=== PATIENT | female | born 1965 | race Two or more races ===

== ENCOUNTER 2025-05-08 12:14 | Inpatient (IN) | payer OTHER ==
[~2025-05-08] VITALS: Wt 74.8 kg
[2025-05-08] MEDS ORDERED: ZETIA10 MG (13:19)
[2025-05-15] MEDS ORDERED: CEFTRIAXONE SODIUM 2,000 MG VIAL ONE (09:23)
[2025-05-15] MEDS ORDERED: METRONIDAZOLE/SODIUM CHLORIDE 500 MG/100 ML PIGGYBACK IV ONE ×2 (09:23→15:47)
[2025-05-15] MEDS ORDERED: BUPIVACAINE HCL/Mpf 0.5% 10ML VIAL ONE (10:01)
[2025-05-15] MEDS ORDERED: SUGAMMADEX SODIUM 200 MG/2 ML VIAL IV ONE (11:57)
[2025-05-15] MEDS ORDERED: 0.9 % SODIUM CHLORIDE 1,000 ML IV SCH (12:30)
[2025-05-15] MEDS ORDERED: ONDANSETRON HCL 2 MG/ML VIAL IV PRN (12:30)
[2025-05-15] MEDS ORDERED: DEXTROSE 50 % IN WATER 0.5 G/ML VIAL IV PRN (12:30)
[2025-05-15] MEDS ORDERED: MORPHINE SULFATE 4 MG/ML CARTRIDGE IV PRN (12:30)
[2025-05-15] MEDS ORDERED: OxyCODONE HCL 5 MG TABLET (ROXICODONE) PO PRN (12:30)
[2025-05-15] MEDS ORDERED: HYOSCYAMINE SULFATE 0.125 MG TAB.SUBL SL SCH (13:00)
[2025-05-15] MEDS ORDERED: ONDANSETRON HCL 2 MG/ML VIAL ONE (13:40)
[2025-05-15] MEDS ORDERED: ENALAPRILAT DIHYDRATE 1.25 MG/ML VIAL IV PRN (13:45)
[2025-05-15] MEDS ORDERED: ONDANSETRON HCL 2 MG/ML VIAL IV ONE (13:50)
[2025-05-15] MEDS ORDERED: ACETAMINOPHEN 500 MG GEL..CAP PO SCH (14:00)
[2025-05-15 15:44] LABS: BASO % 0.3 % (0.1-1.2); EOS # 0.02 (0.04-0.54); EOS % 0.2 % (0.7-7.0); LYMPH # 1.46 (1.18-3.74); LYMPH % 11.3 % (19.3-53.1); MEAN PLATELET VOLUME 9.30 fl (9.4-12.4); MONO # 0.62 (0.24-0.82); MONO % 4.8 % (4.7-12.5); NEUT # 10.71 (1.56-6.13); NEUT % 83.1 % (34.0-71.1); RED CELL DISTRIBUTION WIDTH 11.5 % (11.6-14.4)
[2025-05-15] MEDS ORDERED: HYOSCYAMINE SULFATE 0.125 MG TAB.SUBL ONE (15:47)
[2025-05-15] MEDS ORDERED: GABAPENTIN 300 MG CAPSULE PO ONE (15:47)
[2025-05-15 16:05] LABS: BUN CREA RATIO 13.0 (7.0-25.0); CREATININE SERUM 0.7 mg/dL (0.55-1.02); GFR 85.35; GLUCOSE FASTING 119.0 mg/dL (65-100); OSMOLALITY SERUM 283.0 MOSM/KG (275-295)
[2025-05-15] MEDS ORDERED: GABAPENTIN 300 MG CAPSULE PO SCH (17:00)
[2025-05-15] MEDS ORDERED: METRONIDAZOLE/SODIUM CHLORIDE 500 MG/100 ML PIGGYBACK IV SCH (17:00)
[2025-05-15 18:36] VITALS: BP 115/71; O2SAT 96
[2025-05-15] MEDS ORDERED: CELECOXIB 200 MG CAPSULE PO SCH (21:00)
[2025-05-15] MEDS ORDERED: FAMOTIDINE/PF 20 MG/2 ML VIAL IV PUSH SCH (21:00)
[2025-05-16 00:34] VITALS: BP 107/66; O2SAT 97
[2025-05-16 10:37] LABS: BUN CREA RATIO 11.0 (7.0-25.0); CREATININE SERUM 0.74 mg/dL (0.55-1.02); GFR 80.05; GLUCOSE FASTING 89.0 mg/dL (65-100); OSMOLALITY SERUM 277.0 MOSM/KG (275-295)
[2025-05-16 13:08] LABS: BASO % 0.2 % (0.1-1.2); EOS # 0.00 (0.04-0.54); EOS % 0.0 % (0.7-7.0); LYMPH # 2.31 (1.18-3.74); LYMPH % 16.3 % (19.3-53.1); MEAN PLATELET VOLUME 9.40 fl (9.4-12.4); MONO # 0.92 (0.24-0.82); MONO % 6.5 % (4.7-12.5); NEUT # 10.84 (1.56-6.13); NEUT % 76.5 % (34.0-71.1); RED CELL DISTRIBUTION WIDTH 11.4 % (11.6-14.4)
[2025-05-16] MEDS ORDERED: ENOXAPARIN SODIUM 40 MG/0.4 ML SYRINGE SUBCUTANEO SCH (17:00)
[2025-05-16 17:08] VITALS: BP 102/67; O2SAT 96
[2025-05-16] MEDS ORDERED: CELECOXIB 200 MG CAPSULE PO SCH (21:00)
[2025-05-17 00:50] VITALS: BP 92/61; O2SAT 95
[2025-05-17 07:56] LABS: BASO % 0.3 % (0.1-1.2); EOS # 0.03 (0.04-0.54); EOS % 0.3 % (0.7-7.0); LYMPH # 1.59 (1.18-3.74); LYMPH % 17.2 % (19.3-53.1); MEAN PLATELET VOLUME 9.50 fl (9.4-12.4); MONO # 0.64 (0.24-0.82); MONO % 6.9 % (4.7-12.5); NEUT # 6.94 (1.56-6.13); NEUT % 74.9 % (34.0-71.1); RED CELL DISTRIBUTION WIDTH 11.9 % (11.6-14.4)
[2025-05-17 08:00] VITALS: BP 123/77; O2SAT 96
[2025-05-17 08:49] LABS: BUN CREA RATIO 13.0 (7.0-25.0); CREATININE SERUM 0.76 mg/dL (0.55-1.02); GFR 77.63; GLUCOSE FASTING 79.0 mg/dL (65-100); OSMOLALITY SERUM 285.0 MOSM/KG (275-295)
[2025-05-17] MEDS ORDERED: ENOXAPARIN SODIUM 40 MG/0.4 ML SYRINGE SUBCUTANEO SCH (09:00)
[2025-05-17] MEDS ORDERED: POTASSIUM PHOS,M-BASIC-D-BASIC 3 MM/ML VIAL IV ONE (10:30)
[2025-05-17 16:00] VITALS: BP 109/67; O2SAT 96
[2025-05-18] MEDS ORDERED: MORPHINE SULFATE 4 MG/ML CARTRIDGE IV PRN (01:00)
[2025-05-18 01:38] VITALS: BP 112/67; O2SAT 98
[2025-05-18 07:44] LABS: BASO % 0.4 % (0.1-1.2); EOS # 0.04 (0.04-0.54); EOS % 0.5 % (0.7-7.0); LYMPH # 1.97 (1.18-3.74); LYMPH % 23.4 % (19.3-53.1); MEAN PLATELET VOLUME 9.60 fl (9.4-12.4); MONO # 0.59 (0.24-0.82); MONO % 7.0 % (4.7-12.5); NEUT # 5.75 (1.56-6.13); NEUT % 68.3 % (34.0-71.1); RED CELL DISTRIBUTION WIDTH 11.9 % (11.6-14.4)
[2025-05-18 08:06] VITALS: BP 106/71; O2SAT 94
[2025-05-18 08:36] LABS: ALT/SGPT 22.0 U/L (12-78); AST/SGOT 16.0 U/L (15-37); BILIRUBIN TOTAL 0.53 mg/dL (0.3-1.2); BUN CREA RATIO 13.0 (7.0-25.0); CREATININE SERUM 0.7 mg/dL (0.55-1.02); GFR 85.35; GLOBULINA 2.5 G/DL (2.4-3.5); GLUCOSE FASTING 72.0 mg/dL (65-100); OSMOLALITY SERUM 286.0 MOSM/KG (275-295)
[2025-05-18] MEDS ORDERED: POTASSIUM PHOS,M-BASIC-D-BASIC 3 MM/ML VIAL IV NR (13:00)
[2025-05-18 16:00] VITALS: BP 111/75; O2SAT 98
[2025-05-18] MEDS ORDERED: AMINO ACIDS 1 EACH TABLET PO SCH (17:00)
[2025-05-19 02:53] VITALS: BP 124/78; O2SAT 92
[2025-05-19 07:33] LABS: BASO % 0.4 % (0.1-1.2); EOS # 0.11 (0.04-0.54); EOS % 1.6 % (0.7-7.0); LYMPH # 1.56 (1.18-3.74); LYMPH % 22.5 % (19.3-53.1); MEAN PLATELET VOLUME 9.40 fl (9.4-12.4); MONO # 0.56 (0.24-0.82); MONO % 8.1 % (4.7-12.5); NEUT # 4.66 (1.56-6.13); NEUT % 67.1 % (34.0-71.1); RED CELL DISTRIBUTION WIDTH 12.0 % (11.6-14.4)
[2025-05-19 08:00] VITALS: BP 119/75; O2SAT 96
[2025-05-19 08:08] LABS: BUN CREA RATIO 12.0 (7.0-25.0); CREATININE SERUM 0.65 mg/dL (0.55-1.02); GFR 92.97; GLUCOSE FASTING 79.0 mg/dL (65-100); OSMOLALITY SERUM 286.0 MOSM/KG (275-295)
[2025-05-19] MEDS ORDERED: POTASSIUM PHOS,M-BASIC-D-BASIC 3 MM/ML VIAL IV ONE (10:00)
[2025-05-19 10:09] LABS: URINE APPEARANCE Cloudy; URINE BILIRRUBIN Negative (NEGATIVE); URINE BLOOD Moderate; URINE COLOR Yellow; URINE GLUCOSE Negative (NEGATIVE); URINE KETONE Trace (NEGATIVE); URINE LEUKOCYTE Moderate; URINE NITRATE Positive; URINE PROTEIN Trace (NEGATIVE); URINE UROBILINOGEN 0.2 E.U./dl
[2025-05-19 10:12] LABS: URINE EPITHELIAL CELLS 7.2 uL (0.0-38.8); URINE RBC 393.3 uL (0.0-20.8)
[2025-05-19 10:49] LABS: URINE BACTERIA > 9821.5 uL (0.0-1933); URINE CAST 0.14 uL (0.0-1.40); URINE WBC > 5548.3 uL (0.0-23.2)
[2025-05-19] MEDS ORDERED: levoFLOXacin IN DEXTROSE 5 % 150 ML IV SCH (12:00)
[2025-05-19 16:40] VITALS: BP 126/82; O2SAT 98
[2025-05-19] MEDS ORDERED: VITAMIN B COMPLEX/LYSINE 15 ML BLIST.PACK PO SCH (17:00)
[2025-05-19] MEDS ORDERED: OxyCODONE HCL 5 MG TABLET (ROXICODONE) PO PRN (21:45)
[2025-05-20 01:20] VITALS: BP 118/79; O2SAT 98
[2025-05-20 07:29] LABS: BASO % 0.3 % (0.1-1.2); EOS # 0.17 (0.04-0.54); EOS % 2.5 % (0.7-7.0); LYMPH # 1.81 (1.18-3.74); LYMPH % 26.8 % (19.3-53.1); MEAN PLATELET VOLUME 9.20 fl (9.4-12.4); MONO # 0.64 (0.24-0.82); MONO % 9.5 % (4.7-12.5); NEUT # 4.10 (1.56-6.13); NEUT % 60.6 % (34.0-71.1); RED CELL DISTRIBUTION WIDTH 11.8 % (11.6-14.4)
[2025-05-20 07:53] LABS: BUN CREA RATIO 12.0 (7.0-25.0); CREATININE SERUM 0.66 mg/dL (0.55-1.02); GFR 91.35; GLUCOSE FASTING 79.0 mg/dL (65-100); OSMOLALITY SERUM 286.0 MOSM/KG (275-295)
[2025-05-20 08:00] VITALS: BP 116/70; O2SAT 100
[2025-05-20] MEDS ORDERED: POLYETHYLENE GLYCOL 3350 17 GM BLIST.PACK PO SCH (17:00)
[2025-05-20 17:24] VITALS: BP 144/84; O2SAT 100
[2025-05-21 01:49] VITALS: BP 126/77; O2SAT 98
[2025-05-21 08:35] VITALS: BP 146/80; O2SAT 94
[2025-05-21 08:38] LABS: BUN CREA RATIO 10.0 (7.0-25.0); CREATININE SERUM 0.78 mg/dL (0.55-1.02); GFR 75.33; GLUCOSE FASTING 81.0 mg/dL (65-100); OSMOLALITY SERUM 284.0 MOSM/KG (275-295)
[2025-05-21 08:42] LABS: BASO % 0.6 % (0.1-1.2); EOS # 0.15 (0.04-0.54); EOS % 2.2 % (0.7-7.0); LYMPH # 2.34 (1.18-3.74); LYMPH % 34.2 % (19.3-53.1); MEAN PLATELET VOLUME 9.10 fl (9.4-12.4); MONO # 0.71 (0.24-0.82); MONO % 10.4 % (4.7-12.5); NEUT # 3.56 (1.56-6.13); NEUT % 52.0 % (34.0-71.1); RED CELL DISTRIBUTION WIDTH 11.9 % (11.6-14.4)
[2025-05-21 16:00] VITALS: BP 137/84; O2SAT 100
[2025-05-22 01:21] VITALS: BP 138/78; O2SAT 99
[2025-05-22 08:00] VITALS: BP 114/73; O2SAT 98
[2025-05-22] MEDS ORDERED: DIATRIZOATE MEGLUMINE, SODIUM 30 ML BOTTLE PO ONE (10:30)
[2025-05-22 13:53] LABS: URINE APPEARANCE Clear; URINE BILIRRUBIN Negative (NEGATIVE); URINE BLOOD Negative; URINE COLOR Yellow; URINE GLUCOSE Negative (NEGATIVE); URINE KETONE Negative (NEGATIVE); URINE LEUKOCYTE Trace; URINE NITRATE Negative; URINE PROTEIN Negative (NEGATIVE); URINE UROBILINOGEN 0.2 E.U./dl
[2025-05-22 13:56] LABS: URINE BACTERIA 5.9 uL (0.0-1933); URINE EPITHELIAL CELLS 2.3 uL (0.0-38.8); URINE RBC 3.8 uL (0.0-20.8); URINE WBC 14.1 uL (0.0-23.2)
[2025-05-22 14:10] LABS: URINE CAST 0.00 uL (0.0-1.40)
[2025-05-22 16:50] VITALS: BP 142/85; O2SAT 97
[2025-05-22] MEDS ORDERED: SIMETHICONE 125 MG CAPSULE PO SCH (17:00)
[2025-05-23 00:38] VITALS: BP 113/74; O2SAT 97
[2025-05-23 06:47] LABS: BASO % 0.6 % (0.1-1.2); EOS # 0.16 (0.04-0.54); EOS % 2.4 % (0.7-7.0); LYMPH # 2.20 (1.18-3.74); LYMPH % 33.5 % (19.3-53.1); MEAN PLATELET VOLUME 8.60 fl (9.4-12.4); MONO # 0.61 (0.24-0.82); MONO % 9.3 % (4.7-12.5); NEUT # 3.49 (1.56-6.13); NEUT % 53.3 % (34.0-71.1); RED CELL DISTRIBUTION WIDTH 12.1 % (11.6-14.4)
[2025-05-23 07:26] LABS: BUN CREA RATIO 10.0 (7.0-25.0); CREATININE SERUM 0.72 mg/dL (0.55-1.02); GFR 82.62; GLUCOSE FASTING 87.0 mg/dL (65-100); OSMOLALITY SERUM 280.0 MOSM/KG (275-295)
[2025-05-23] MEDS ORDERED: SIMETHICONE125 M1 PO (07:56)
[2025-05-23] MEDS ORDERED: LEVOFLOXACIN500 MG PO (07:56)
[2025-05-23] MEDS ORDERED: TRAM1TAB98 PO (07:56)
[2025-05-23] MEDS ORDERED: PEPCID AC20 MG PO (07:56)
[2025-05-23] MEDS ORDERED: DICY20TA PO (07:57)
[2025-05-23 09:18] VITALS: BP 119/79; O2SAT 97
== END 2025-05-23 13:43 | disposition home or self-care (01) | DRG 330 ==
LOC: SURH 05-15 09:08 → O/R 05-15 09:08 → SURG 05-15 10:30 → SURH 05-15 15:50
PROVIDERS: Internal Medicine Geriatric Medicine; Surgery; ADMIT Surgery; ATTEND Surgery
PROC: 07BB4ZZ Excision of Mesenteric Lymphatic, Percutaneous Endoscopic Approach (ICD-10-PCS; 2025-05-15)
PROC: 0DTF4ZZ Resection of Right Large Intestine, Percutaneous Endoscopic Approach (ICD-10-PCS; principal; 2025-05-15 10:30)
PROC: B54CZZZ Ultrasonography of Left Lower Extremity Veins (ICD-10-PCS; 2025-05-16)
DX: C18.0 Malignant neoplasm of cecum (principal); K56.0 Paralytic ileus; N39.0 Urinary tract infection, site not specified; K63.5 Polyp of colon; E78.5 Hyperlipidemia, unspecified; T81.89XA Other complications of procedures, not elsewhere classified, initial encounter; Y65.8 Other specified misadventures during surgical and medical care; D75.1 Secondary polycythemia; G43.909 Migraine, unspecified, not intractable, without status migrainosus; B96.89 Other specified bacterial agents as the cause of diseases classified elsewhere